=== PATIENT | female | born 1985 ===

== ENCOUNTER 2017-05-29 06:48 | Emergency (ER) | payer SELFPAY ==
[2017-05-29 07:04] VITALS: BP 131/85; PULSE 92; RESP 20; TEMP 98.4; O2SAT 99
--- NOTE | 2017-05-29 08:18 | C.PDOC ---
History Of Present Illness 31 y/o female c/o right lower dental pain since last night, took tylenol and used anbesol with no relief. pt report similar pain in same tooth 2 weeks ago, ans has not seen dentist. no fever. Time Seen by Provider: 05/29/17 07:30 Chief Complaint (Nursing): Dental Pain History Per: Patient History/Exam Limitations: no limitations Onset/Duration Of Symptoms: Days Current Symptoms Are (Timing): Still Present Severity: Moderate Past Medical History Reviewed: Historical Data, Nursing Documentation, Vital Signs Vital Signs: Last Vital Signs Temp 98.4 F 05/29/17 07:00 Pulse 92 H 05/29/17 07:00 Resp 20 05/29/17 07:00 BP 131/85 05/29/17 07:00 Pulse Ox 99 05/29/17 09:05 - Medical History PMH: No Chronic Diseases Surgical History: No Surg Hx Family History: States: No Known Family Hx - Social History Hx Alcohol Use: No Hx Substance Use: No - Immunization History Hx Tetanus Toxoid Vaccination: No Hx Influenza Vaccination: No Hx Pneumococcal Vaccination: No Review Of Systems Constitutional: Negative for: Fever, Chills ENT: Positive for: Mouth Pain Physical Exam - Physical Exam Appears: Non-toxic, No Acute Distress Skin: Warm, Dry Head: Atraumatic, Normacephalic, No Swelling Oral Mucosa: Moist Teeth: Tender To Palpation (lower right most posterior molar) Gingiva: No Swelling Neck: Supple Chest: Symmetrical Neurological/Psych: Oriented x3, Normal Speech, Normal Motor, Normal Sensation ED Course And Treatment O2 Sat by Pulse Oximetry: 99 (RA) Pulse Ox Interpretation: Normal Medical Decision Making Medical Decision Making: Plan: --Toradol IM --POC Urine Test Disposition - Disposition Referrals: [facility] [Outside] Disposition: HOME/ ROUTINE Disposition Time: 09:02 Condition: STABLE Additional Instructions: Please follow up with dental as soon as possible. Take antibiotics and ibuprofen as prescribed. Prescriptions: Amoxicillin [Amoxil 500 mg Cap] 500 mg PO TID #21 cap Ibuprofen [Motrin] 600 mg PO TID #30 tab Instructions: Dental Pain (DC) Forms: [facility] (E[place]an), General Discharge Instructions - Clinical Impression Clinical Impression: Toothache - PA / BODY ART TECHNICIAN / Resident Statement MD/DO has reviewed & agrees with the documentation as recorded. - Scribe Statement The provider has reviewed the documentation as recorded by the Scribe Beverly Norris Provider Attestation All medical record entries made by the Scribe were at my direction and personally dictated by me. I have reviewed the chart and agree that the record accurately reflects my personal performance of the history, physical exam, medical decision making, and the department course for this patient. I have also personally directed, reviewed, and agree with the discharge instructions and disposition.
== END 2017-05-29 09:24 | disposition home or self-care (01) ==
LOC: C.ER 06:48
DX: K08.89 Other specified disorders of teeth and supporting structures (principal)
CPT/HCPCS: 96372; 99283; J1885